=== PATIENT | female | born 1955 | race Two or more races ===

== ENCOUNTER 2019-02-07 15:44 | Emergency (ER) | payer OTHER ==
[~2019-02-07] VITALS: Ht 162.6 cm; Wt 88.9 kg
[~2019-02-07 15:44] MED LIST: CIPROFLOXACIN250 M2 PO; COLACE100 MG PO; DOC-Q-LACE100 MG PO; LEXAPRO10 MG PO; LOP600 PO; LOSARTAN POTASS1 TA6 PO; METFORMIN ER500 M1 PO; NAPROSYN375 MG PO; NEU300 PO; NOR10T PO
[2019-02-07 16:01] VITALS: Ht 162.6 cm; Wt 88.9 kg
[2019-02-07 17:52] VITALS: BP 135/63
[2019-02-07 18:21] LABS: UA SPECIFIC GRAVITY >=1.030 (1.005-1.035); microscopic required? YES; urine erythrocyte 3+ (NEGATIVE)
== END 2019-02-07 18:26 | disposition home or self-care (01) ==
LOC: ED 15:44
PROVIDERS: Specialist
DX: N39.0 Urinary tract infection, site not specified (principal); E11.9 Type 2 diabetes mellitus without complications; F32.9 Major depressive disorder, single episode, unspecified
CPT/HCPCS: J0696; J1885